=== PATIENT | male | born 1950 | race Caucasian/White ===

== ENCOUNTER 2022-09-01 14:31 | Inpatient (IN) | payer MEDICARE ==
[~2022-09-01] VITALS: Ht 175.3 cm; Wt 68.0 kg
[2022-09-01] VITALS (25 sets, daily range): BP systolic 127–165; BP diastolic 65–86
--- NOTE | 2022-09-01 14:40 | NUR ---
PT TO ROOM VIA WC STATING "IF YOU CANT STOP THIS PAIN IN 10 MINUTES I AM OUT OF HERE"
[2022-09-01] MEDS ORDERED: LISINOPRIL10 MG PO (15:04)
--- NOTE | 2022-09-01 15:17 | NUR ---
MEDICATED FOR RT UPPER ABD PAIN 04/14
[2022-09-01 15:21] LABS: BASO% 0.1 % (0-3); EOS% 0.1 % (0-8); HEMATOCRIT 45.8 % (39.0-50.0); IMMATURE GRANULOCYTES 0.3 % (0.0-5.0); LYMPH% 6.3 % (15-41); MEAN CELL VOLUME 92.2 fL CALC (80.0-100.0); MEAN CORPUSCULAR HGB 32.2 pG CALC (26.0-32.0); MEAN CORPUSCULAR HGB CONC 34.9 g/dL CAL (32.0-36.0); NEUT# 13.98 thou/uL (1.82-7.42); NEUT% 87.2 % (42-76); RED BLOOD COUNT 4.97 mill/uL (4.70-6.10); RED CELL DISTRI WIDTH 12.6 % (11.5-15.5)
[2022-09-01 15:26] LABS: GFR FOR AFR.AMER. > 60 ML/MIN (>=60 (CALC)); GFR OTHER RACES > 60 ML/MIN (>=60 (CALC))
[2022-09-01 15:43] LABS: ALBUMIN 4.5 g/dL (3.2-5.0); ALKALINE PHOSPHATASE 103 u/l (38-126); ANION GAP 13 (6-22 (CALC)); BUN 23 mg/dL (8-23); BUN/CREATININE RATIO 24 (12-20 (CALC)); CARBON DIOXIDE 25 mmol/l (22-30); CHLORIDE 105 mmol/l (95-108); GFR FOR AFR.AMER. > 60 ML/MIN (>=60 (CALC)); GFR OTHER RACES > 60 ML/MIN (>=60 (CALC)); POTASSIUM 3.4 mmol/l (3.5-5.1); SGOT/AST 140 u/l (19-48); SODIUM 140 mmol/l (137-146); TOTAL PROTEIN 7.2 g/dL (6.3-8.2)
--- NOTE | 2022-09-01 18:30 | NUR ---
PT ARRIVED TO ROOM 290. A&OX4. NO APPARENT DISTRESS NOTED. PT DENIES ANY PAIN OR DISCOMFORT. AMBULATORY WITH STAND BY ASSIST. ORIENTED TO ROOM AND CALL LIGHT SYSTEM.
--- NOTE | 2022-09-01 18:43 | NUR ---
PATIENT TO INPATIENT TREATMENT ROOM 290 BY WHEELCHAIR, PATIENT AWAKE AND ALERT, NO C/O PAIN OR DISCOMFORT, NO S/S OF DISTRESS NOTED, RESPIRATIONS EVEN AND UNLABORED ON ROOM AIR, PATIENT ABLE TO AMBULATE INDEPENDENTLY.
--- NOTE | 2022-09-01 19:25 | NUR ---
SPOKE WITH FINANCIAL OPERATIONS CONSULTANT MD, CLARIFIED PATIENT DIET ORDER BEFORE GIVING PATIENT HIS TRAY.
--- NOTE | 2022-09-01 19:52 | NUR ---
PATIENT ALERT AND ORIENTED. ABLE TO MAKE NEEDS KNOWN. AT BEDSIDE. ASSESSMENT COMPLETE. DENIES ANY PAIN. NO DISTRESS. PATIENT OBSERVED TO HAVE GLOVES ON, VOICED HE WEARS THEM BECAUSE IT HELPS WITH HIS ECZEMA. BED REMAINS IN LOW POSITION. CALL CLAYTON AND BELONGINGS IN REACH.
--- NOTE | 2022-09-01 19:55 | NUR ---
INFORMED BIKE TECHNICIAN MD OF CRITICAL LACTIC 2.5 ON PATIENT. APPEARS TRENDING DOWN.
[2022-09-02 00:05] VITALS: BP 155/89
--- NOTE | 2022-09-02 00:25 | NUR ---
PATIENT APPEARS RESTING IN BED WITH EYES CLOSED AND HOB ELEVATED. NO SIGNS OF DISTRESS. NO COMPLAINTS OF PAIN. BED REMAINS IN LOW POSITION. CALL CLAYTON IN REACH.
--- NOTE | 2022-09-02 01:10 | NUR ---
ANSWERED PATIENTS CALL LIGHT. FIXED TELE LEADS AND PROVIDED A BLANKET.
--- NOTE | 2022-09-02 02:22 | NUR ---
PROVIDED WITH TYLENOL C/O PAIN TO RIGHT RIB AREA.
--- NOTE | 2022-09-02 02:30 | NUR ---
CALLED ENVIRONMENTAL MANAGER MD AND INFORMED PATIENTS PAIN INCREASED. RECEIVED NEW ORDER. SEE EMAR. INFORMED PATIENT OF NEW MEDICATION AND NEEDING IT TO BE PROFILED BEFORE I COULD PULL IT. I DID SEND ORDER STAT TO PHARMACY.
--- NOTE | 2022-09-02 02:36 | NUR ---
CALLED [facility] AND EXPLAINED NEEDING MEDICATION PROFILED IMMEDIATELY, TECH VOICED HE WAS RELAYING TO PHARMACIST.
--- NOTE | 2022-09-02 02:50 | NUR ---
PATIENT RECEIVED PRN DILAUDID PER ORDER FOR PAIN TO RIGHT RIB AREA, PATIENT HERE FOR PANCREATITIS. PATIENT TOLERATED WELL AND IMMEDIATELY SAID PAIN REDUCED TO A 5. PATIENT VOICED, ''IM GOING TO NEED MORE PAIN MEDICINE IN 5 MINUTES''. EDUCATED PATIENT ON HOW OFTEN HIS PAIN MEDICATION CAN BE GIVEN AND ALSO THAT HE NEEDS TO GIVE IT TIME TO BE EFFECTIVE. I VOICED TO PATIENT I CAN ONLY GIVE MEDICATION DIRECTED AND THAT I CANNOT GIVE EVERY 5 MINUTES.
--- NOTE | 2022-09-02 03:05 | NUR ---
WAN SUPPORT SPECIALIST WENT INTO ROOM TO SPEAK WITH PATIENT. WAN SUPPORT SPECIALIST EXPLAINED THE PROCESS OF WHEN PAIN MEDICATION IS GIVEN. PATIENT VOICED TO WAN SUPPORT SPECIALIST, ''IM NOT AN IDIOT, I KNOW HOW FAST INTRAVENOUS PAIN MEDICATION WORKS.'' WAN SUPPORT SPECIALIST REDIRECTED PATIENT.
--- NOTE | 2022-09-02 04:10 | NUR ---
NEW BAG OF IV FLUIDS HUNG. PATIENT STATED, ''I THINK I OWE THE OTHER NURSE AN APOLOGY FOR SNAPPING AT HER.'' PATIENT HAS NOT VOICED HAVING PAIN WHILE IN THE ROOM AT THIS TIME. HE APPEARS MORE RELAXED. PROVIDED FRESH WATER. BED IN LOW POSITION. CALL LIGHT IN REACH.
[2022-09-02 04:37] VITALS: BP 141/78
--- NOTE | 2022-09-02 06:19 | NUR ---
PATIENT KEEPS PUTTING CALL LIGHT ON FREQUENTLY. GOT UP OUT OF BED AND KICKED HIS DOOR AND IT SLAMMED SHUT. WENT TO PATIENT ROOM AND ASKED PATIENT ABOUT DOOR SLAMMING. PATIENT ADMITTED TO SLAMMING DOOR. REMINDED PATIENT THERE ARE OTHER PATIENTS ON THE HALLWAYS NEAR. PATIENT ALSO KEEPS BENDING HIS ARM FREQUENTLY AWARE OF IV ALARMING EACH TIME HE DOES. PT STATED, ''CAN YOU TAPE A YARD STICK TO MY ARM?'' REDIRECTING IS NOT EFFECTIVE FOR PATIENT. PATIENT BECOMES VERY DISRESPECTFUL.
--- NOTE | 2022-09-02 06:45 | NUR ---
REPORT FROM ILIANA GRACE. ASSUMED PT CARE.
[2022-09-02 07:12] VITALS: BP 132/72
[2022-09-02 10:47] VITALS: BP 153/80
--- NOTE | 2022-09-02 11:29 | NUR ---
PT NPO AT THIS TIME. DISCUSSED PLAN OF CARE AND NEED FOR NPO STATUS FOR 6HOURS PRIOR TO US. PT VERBALIZED UNDERSTANDING. CALL LIGHT WITHIN REACH. WILL CONTINUE TO MONITOR.
[2022-09-02 11:58] LABS: BASO% 0.2 % (0-3); EOS% 0.1 % (0-8); HEMATOCRIT 41.4 % (39.0-50.0); HEMOGLOBIN 14.3 g/dl (14.0-18.0); IMMATURE GRANULOCYTES 0.2 % (0.0-5.0); LYMPH% 8.7 % (15-41); MEAN CELL VOLUME 94.5 fL CALC (80.0-100.0); MEAN CORPUSCULAR HGB 32.6 pG CALC (26.0-32.0); MEAN CORPUSCULAR HGB CONC 34.5 g/dL CAL (32.0-36.0); MONO% 7.1 % (2-13); NEUT# 11.02 thou/uL (1.82-7.42); NEUT% 83.7 % (42-76); RED BLOOD COUNT 4.38 mill/uL (4.70-6.10)
[2022-09-02 12:13] LABS: ALBUMIN 3.9 g/dL (3.2-5.0); ALKALINE PHOSPHATASE 87 u/l (38-126); ANION GAP 13 (6-22 (CALC)); BILIRUBIN, TOTAL 0.9 mg/dL (0.0-1.4); BUN 22 mg/dL (8-23); BUN/CREATININE RATIO 25 (12-20 (CALC)); CARBON DIOXIDE 25 mmol/l (22-30); CHLORIDE 109 mmol/l (95-108); CREATININE 0.9 mg/dL (0.7-1.3); GFR FOR AFR.AMER. > 60 ML/MIN (>=60 (CALC)); GFR OTHER RACES > 60 ML/MIN (>=60 (CALC)); POTASSIUM 3.5 mmol/l (3.5-5.1); SGOT/AST 125 u/l (19-48); SODIUM 144 mmol/l (137-146); TOTAL PROTEIN 6.3 g/dL (6.3-8.2)
--- NOTE | 2022-09-02 13:06 | NUR ---
WARM BLANKET PROVIDED UPON REQUEST. NO APPARENT DISTRESS NOTED. PT DENIES ANY PAIN OR NAUSEA AT THIS TIME. CALL LIGHT WITHIN REACH. PT REMAINS NPO, US SCHEDULED FOR 2PM. WILL CONITNUE TO MONITOR.
--- NOTE | 2022-09-02 13:38 | NUR ---
PT LEFT VIA WHEELCHAIR TO RADIOLOGY DEPARTMENT.
[2022-09-02 15:51] VITALS: BP 132/61
--- NOTE | 2022-09-02 17:50 | NUR ---
Discharge instructions given. Patient verbalizes understanding of same. Discharged in stable condition via Wheelchair to Home with family. All belongings sent with pt.
== END 2022-09-02 17:50 | disposition home or self-care (01) | DRG 440 ==
LOC: ED 14:31 → ED-I 15:30 → ED 18:03 → MS2 18:04
PROVIDERS: Family Medicine; Nurse Practitioner Family; ADMIT Internal Medicine; ATTEND Internal Medicine
DX: K85.10 Biliary acute pancreatitis without necrosis or infection (principal); K80.20 Calculus of gallbladder without cholecystitis without obstruction; I10 Essential (primary) hypertension; Z20.822 Contact with and (suspected) exposure to COVID-19
CPT/HCPCS: J1650; Q9967

== ENCOUNTER 2022-09-28 04:00 | Emergency (ER) | payer SELFPAY ==
[2022-09-28] VITALS (23 sets, daily range): BP systolic 98–132; BP diastolic 56–72
[~2022-09-28] VITALS: Ht 167.6 cm; Wt 130.0 kg
[~2022-09-28 04:00] MED LIST: LISINOPRIL10 MG PO
[2022-09-28 04:41] LABS: BASO% 0.1 % (0-3); EOS% 0.4 % (0-8); HEMOGLOBIN 15.6 g/dl (14.0-18.0); IMMATURE GRANULOCYTES 0.2 % (0.0-5.0); LYMPH% 12.4 % (15-41); MEAN CELL VOLUME 94.6 fL CALC (80.0-100.0); MEAN CORPUSCULAR HGB 31.4 pG CALC (26.0-32.0); MEAN CORPUSCULAR HGB CONC 33.2 g/dL CAL (32.0-36.0); MONO% 8.4 % (2-13); NEUT# 13.24 thou/uL (1.82-7.42); NEUT% 78.5 % (42-76); RED BLOOD COUNT 4.97 mill/uL (4.70-6.10); RED CELL DISTRI WIDTH 12.4 % (11.5-15.5)
[2022-09-28 04:54] LABS: ALBUMIN 4.4 g/dL (3.2-5.0); ALKALINE PHOSPHATASE 135 u/l (38-126); ANION GAP 11 (6-22 (CALC)); BILIRUBIN, TOTAL 0.8 mg/dL (0.0-1.4); BUN 33 mg/dL (8-23); BUN/CREATININE RATIO 29 (12-20 (CALC)); CARBON DIOXIDE 31 mmol/l (22-30); CHLORIDE 101 mmol/l (95-108); CREATININE 1.1 mg/dL (0.7-1.3); GFR FOR AFR.AMER. > 60 ML/MIN (>=60 (CALC)); GFR OTHER RACES > 60 ML/MIN (>=60 (CALC)); SGOT/AST 392 u/l (19-48); SODIUM 139 mmol/l (137-146); TOTAL PROTEIN 7.1 g/dL (6.3-8.2)
[2022-09-28 05:28] LABS: LIPASE 36367 u/l (23-300)
== END 2022-09-28 10:18 | DRG 438 ==
LOC: ED 04:00
PROVIDERS: Internal Medicine
DX: K85.90 Acute pancreatitis without necrosis or infection, unspecified (principal); A41.9 Sepsis, unspecified organism; K80.20 Calculus of gallbladder without cholecystitis without obstruction; R74.01 Elevation of levels of liver transaminase levels; R74.02 Elevation of levels of lactic acid dehydrogenase [LDH]